=== PATIENT | female | born 1985 | race Caucasian/White ===

== ENCOUNTER 2018-08-22 06:07 | Day surgery (SDC) | payer OTHER ==
[2018-08-21 12:50] VITALS: BMI 52.7
--- NOTE | 2018-08-22 07:26 | HP ---
History & Physical Update - History History: No Change - Physical Physical: No Change - Assessment Assessment: No Change - Plan Plan: No Change (H&P unchanged from 07/24/18 Consent signed and witnessed All questions answered)
--- NOTE | 2018-08-22 07:27 | OP ---
Operative Note - Note: Operative Date: 08/22/18 Pre-Operative Diagnosis: 33yo P0 with menometrorrhagia, endometrial polyp on Sonogram Operation: Hysteroscopy/Polypectomy/D&C Findings: 1. Endometrial cavity 2. Overgrown endometrium Post-Operative Diagnosis: Same as Pre-op Surgeon: Amanda Bullock Anesthesiologist/TEXTILE CONVERSION MANAGER: Juan Izaguirre Anesthesia: MAC Estimated Blood Loss (mls): 5 Instrument used (Debridements only): Symphion Hysteroscope Drains & Tubes with Location: Fluid defficit 50cc Drains, Volume Out (mls): 50 Fluid Volume Replaced (mls): 300 Operative Report Dictated: Yes
[2018-08-22] MEDS ORDERED: ONDANSETRON 4 MG/2 ML VIAL IVPUSH PRN (07:28)
[2018-08-22] MEDS ORDERED: IBUPROFEN 600 MG TABLET (FP) PO PRN (07:28)
[2018-08-22] MEDS ORDERED: oxyCODONE HCL 5 MG TABLET PO PRN (07:28)
[2018-08-22] MEDS ORDERED: IBUPROFEN 800 MG/8 ML IJ IVPB PRN (07:28)
[2018-08-22] MEDS ORDERED: ELECTROLYTE-148 SOLN 1,000 ML IV SCH (07:30)
[2018-08-22] MEDS ORDERED: SUCCINYLCHOLINE CHLORIDE 200 MG/10 ML VIAL ONE (07:34)
[2018-08-22] MEDS ORDERED: MIDAZOLAM HCL 2 MG/2 ML SINGLE DOSE VIAL ONE (07:34)
[2018-08-22] MEDS ORDERED: PROPOFOL 20 ML ONE ×2 (07:34)
[2018-08-22] MEDS ORDERED: SODIUM CHLORIDE 0.9% P/F 10 ML VIAL IJ ONE (07:36)
[2018-08-22] MEDS ORDERED: LIDOCAINE HCL/PF 2% SDV 5ML VIAL ONE (07:36)
[2018-08-22] MEDS ORDERED: DEXAMETHASONE SOD PHOSPHATE 4 MG/1 ML VIAL ONE (07:36)
[2018-08-22] MEDS ORDERED: KETOROLAC TROMETHAMINE 30 MG/1 ML VIAL ONE (07:36)
[2018-08-22] MEDS ORDERED: LIDOCAINE HCL 2% JELLY (5 ML/TUBE) ONE (07:36)
[2018-08-22] MEDS ORDERED: ONDANSETRON 4 MG/2 ML VIAL ONE (09:05)
[2018-08-22] MEDS ORDERED: LACTATED RINGERS SOLUTION 1,000 ML IV SCH (09:45)
[2018-08-22 11:39] VITALS: BP 133/69; PULSE 80; TEMP 97.6
--- NOTE | 2018-08-22 19:15 | OP ---
DATE OF OPERATION: 08/22/2018 PREOPERATIVE DIAGNOSES: A 33-year-old para 0 with menometrorrhagia, endometrial polyp on sonogram, and anemia requiring iron transfusion. OPERATION: Hysteroscopy, polypectomy, dilatation and curettage. FINDINGS: Overgrown endometrial cavity and endometrial polyp. POSTOPERATIVE DIAGNOSES: A 33-year-old para 0 with menometrorrhagia, endometrial polyp on sonogram, and anemia requiring iron transfusion. SURGEON: Amanda Bullock MD ANESTHESIOLOGIST: Juan Izaguirre MD ANESTHESIA: MAC. DESCRIPTION OF OPERATIVE PROCEDURE: After ensuring informed consent, patient was brought to the operating room where she was placed in dorsal lithotomy position. Perineum and vagina were prepped and draped in a sterile fashion. The Symphion hysteroscope was assembled, wide balanced, and primed. Pelayo speculums were placed in the vagina, and cervix was visualized, articulated with a single-tooth tenaculum, and dilated with ujlobdeaq-andgusanfm-cj-size dilators to accommodate 6.3-mm hysteroscope which was introduced into the uterine cavity without any difficulty. Endometrial polyp was visualized, and 3.6-mm resection device was introduced through the operative port. The polyp was resected. Gentle curettage with 1-gauge curette was subsequently performed. The uterus was visualized after the curettage and was found to be intact, and lining was found to be thinner. All instruments were subsequently removed from cervix and vagina. Patient was placed back on the stretcher, extubated. Instrument and sponge count was correct x2. Patient tolerated procedure well. Estimated blood loss: 5 mL. Fluid deficit: 50 mL. Urine output: 50 mL. Patient received 300 mL of IV fluids and was brought to the recovery room in stable condition. Coby [id number]
--- NOTE | 2018-08-23 16:38 | PATH ---
Surgical Pathology Report Patient Name: RASHEED JOYNER [facility]. Rec. #: [id number] /Age/Gender: 1985 (Age: 33) / F Account: [id number] Location: [facility] SURGICAL Taken: 08/22/2018 Received: 08/22/2018 Reported: 08/23/2018 Physicians: Amanda Bullock M.D. Specimen(s) Received A: ENDOMETRIAL CURETTINGS B: ENDOMETRIAL POLYP Clinical History Endometrial polyp Final Diagnosis A. ENDOMETRIAL CURETTINGS, DILATION AND CURETTAGE: FRAGMENTS OF ENDOMETRIAL POLYP AND BENIGN CERVICAL TISSUE ADMIXED WITH BLOOD. B. ENDOMETRIAL POLYP, DILATION AND CURETTAGE: FRAGMENTS OF PROLIFERATIVE ENDOMETRIUM, ENDOMETRIAL POLYP, SUPERFICIAL MYOMETRIUM, AND BENIGN ENDOCERVICAL TISSUE. Electronically Signed Carly Briscoe M.D. Gross Description A. Received in formalin labeled "endometrial curettings," is a 3.0 x 3.0 x 0.4 cm aggregate of hale-red soft tissue fragments admixed with blood clot. The formalin is filtered and the specimen is entirely submitted in 2 cassettes. B. Received in formalin "endometrial polyp," is a 2.3 x 2.2 x 0.3 cm aggregate of hale-pink soft tissue fragments admixed with mucus. The formalin is filtered and the specimen is entirely submitted in one cassette. /08/22/201808/22/2018
== END 2018-08-22 11:38 | disposition home or self-care (01) ==
LOC: JASU-SURG 06:07
PROVIDERS: ATTEND Obstetrics & Gynecology
PROC: 0UJD8ZZ Inspection of Uterus and Cervix, Via Natural or Artificial Opening Endoscopic (ICD-10-PCS; 2018-08-22)
PROC: 0UB97ZX Excision of Uterus, Via Natural or Artificial Opening, Diagnostic (ICD-10-PCS; principal; 2018-08-22 07:30)
PROC: 0UDB7ZX Extraction of Endometrium, Via Natural or Artificial Opening, Diagnostic (ICD-10-PCS; 2018-08-22 07:30)
DX: N92.1 Excessive and frequent menstruation with irregular cycle (principal); N84.0 Polyp of corpus uteri; D64.9 Anemia, unspecified
CPT/HCPCS: 84703; 88305-TC; 94760